=== PATIENT | male | born 1990 | race Caucasian/White ===

== ENCOUNTER 2018-06-22 04:49 | Emergency (ER) | payer BC, OTHER ==
--- NOTE | 2018-06-22 05:15 | PDOC ---
History of Present Illness - General Stated Complaint: FALL - HEADACHE Time Seen by Provider: 06/22/18 05:00 - History of Present Illness Initial Comments: 06/22/18 05:10 28 yo M with no significant pmh who p/w posterior headache s/p mechanical fall. Patient reports walking outside to his car this morning from at unknown time and falling backwards hitting his head. Now with diffuse dull posterior headache with asx. photophobia. Endorses LOC for unknown amount of time. Denies back or neck pain, teeth avulsion, or tongue laceration. Patient father arrived to pick patient up after accident. Patient has since been ambulatory. Denies AC use or analgesia. Patient denies vision change, neck stiffness, tinnitus, cough, leg pain/swelling , N/V, F,C, CP, SOB, urinary complaints, abdominal pain, diarrhea, constipation , hematuria, BPR, lightheadedness, weakness, sensory changes. PMHx: as noted above ROS: as noted Allergies: NKDA Past History - Past Medical History Allergies/Adverse Reactions: Allergies Allergy/AdvReac Type Severity Reaction Status Date / Time No Known Allergies Allergy Verified 06/22/18 05:26 Home Medications: Ambulatory Orders Amox-Tr/K Cl [Augmentin 500Mg Tablet] 1 tab PO TID #30 tablet 04/20/12 Escitalopram Oxalate [Lexapro] 10 mg PO DAILY 04/20/12 - Suicide/Smoking/Psychosocial Hx Smoking Status: Yes Smoking History: Current every day smoker Number of Cigarettes Smoked Daily: 10 Review of Systems - Review of Systems Comments:: 06/22/18 05:29 GENERAL/CONSTITUTIONAL: No fever or chills. No weakness. HEAD, EYES, EARS, NOSE AND THROAT: No change in vision. No ear pain or discharge. No sore throat. CARDIOVASCULAR: No chest pain or shortness of breath RESPIRATORY: No cough, wheezing, or hemoptysis. GASTROINTESTINAL: No nausea, vomiting, diarrhea or constipation. GENITOURINARY: No dysuria, frequency, or change in urination. MUSCULOSKELETAL: No joint or muscle swelling or pain. No neck or back pain. SKIN: No rash NEUROLOGIC: +headache. No vertigo, loss of consciousness, or change in strength/ sensation. ENDOCRINE: No increased thirst. No abnormal weight change HEMATOLOGIC/LYMPHATIC: No anemia, easy bleeding, or history of blood clots. ALLERGIC/IMMUNOLOGIC: No hives or skin allergy. *Physical Exam - Physical Exam Comments: 06/22/18 05:30 GENERAL: Awake, alert, and fully oriented, in no acute distress HEAD: + left posterior/occipital scalp ttp, with absent hematoma, or laceration. No signs of trauma, normocephalic, atraumatic EYES: PERRLA, EOMI, sclera anicteric, conjunctiva clear ENT: Neg periobital echymosis, or postauricular ecchymosis, auricles normal inspection, hearing grossly normal, nares patent, oropharynx clear without exudates. Moist mucosa NECK: Normal ROM, supple, no lymphadenopathy, JVD, or masses LUNGS: No distress, speaks full sentences, clear to auscultation bilaterally HEART: Regular rate and rhythm, normal S1 and S2, no murmurs, rubs or gallops, peripheral pulses normal and equal bilaterally. ABDOMEN: Soft, nontender, normoactive bowel sounds. No guarding, no rebound. No masses EXTREMITIES : Normal inspection, Normal range of motion, no edema. No clubbing or cyanosis. NEUROLOGICAL: Cranial nerves II through XII grossly intact. Normal speech, normal gait, no focal sensorimotor deficits. Neg dysmetria on FTN,or HTS. Nml BUBBA SKIN: Warm, Dry, normal turgor, no rashes or lesions noted Medical Decision Making - Medical Decision Making 06/22/18 05:11 28 yo M with no significant pmh who p/w posterior headache s/p mechanical fall. Vitals wnl, AF, A&Ox3, GCS 15. + left posterior/occipital scalp ttp, with absent hematoma, or laceration. Absent neuro deficits on physical exam. Absent evidence of increased ICP. No evidence of basilar skull fracture. C-SPINE neg per [facility]. R/o skull fracture, hematoma, ICH, TBI. Will provide analgesia and reassess. ED Course: CTH, Tylenol Patient ambulatory, headache improved. 06/22/18 06:15 CTH: No acute pathology Patient stable for d/c with return precautions. *DC/Admit/Observation/Transfer Diagnosis at time of Disposition: Closed head injury with brief loss of consciousness - Discharge Dispostion Condition at time of disposition: Stable Decision to Admit order: No - Referrals Referrals: Tej Epstein [Primary Care Provider] - - Patient Instructions Printed Discharge Instructions: DI for Headache Additional Instructions: Please return to the emergency department with any new or worsening symptoms or concerns. Please follow up with your primary care physician within 72 hours. Can take Tylenol (650 mg) as needed for pain every 6 hours. - Post Discharge Activity - Attestations Physician Attestion: 06/22/18 05:15 I attest to the information provided in this note.
[2018-06-22] MEDS ORDERED: ACETAMINOPHEN 325 MG TABLET (FP) PO ONE (05:24)
[2018-06-22 05:28] VITALS: TEMP 98.4; BMI 23.7
[2018-06-22] MEDS ORDERED: ACETAMINOPHEN 325 MG TABLET (FP) ONE (06:14)
--- NOTE | 2018-06-22 06:16 | PDOC ---
Attending Attestation - Resident Resident Name: Mundo Thorntonson - ED Attending Attestation I have performed the following: I have examined & evaluated the patient, The case was reviewed & discussed with the resident, I agree w/resident's findings & plan, Exceptions are as noted - HPI HPI: 06/22/18 06:28 28M no pmh here with headache after mechanical fall. Pt was walking towards his car when he slipped backwards on the slippery ground, hitting his head. Pt states that he was out for an unknown period of time, fall was unwitnessed. No injuries or px besides posterior headache. No n/v, numbness, weakness - Physicial Exam PE: 06/22/18 06:29 Agree with exam as documented by resident - Medical Decision Making 06/22/18 06:29 Head trauma 2/2 mechanical fall +LOC, concern for acute injury, hx/pe inconsistent with syncope, seizure analgesia f/u imaging No acute injury on dry CT Well appearing, safe for discharge
[2018-06-22 06:30] VITALS: BP 130/85; PULSE 92
== END 2018-06-22 06:27 | disposition home or self-care (01) ==
LOC: JER 04:49
DX: S09.90XA Unspecified injury of head, initial encounter (principal); R55 Syncope and collapse; W01.0XXA Fall on same level from slipping, tripping and stumbling without subsequent striking against object, initial encounter; Y93.89 Activity, other specified; Y92.89 Other specified places as the place of occurrence of the external cause
CPT/HCPCS: 70450-TC; 99282-25

== ENCOUNTER 2020-08-03 12:20 | Emergency (ER) | payer OTHER ==
[2020-08-03 12:57] VITALS: BP 114/76; PULSE 92; TEMP 98.4; BMI 25.1
[2020-08-03] MEDS ORDERED: METOCLOPRAMIDE HCL INJECTION 10 MG/2 ML VIAL IVPUSH ONE (13:23)
[2020-08-03] MEDS ORDERED: ACETAMINOPHEN 1000 MG/100 ML VIAL (NON FORMULARY) IVPB ONE (13:23)
[2020-08-03] MEDS ORDERED: METOCLOPRAMIDE HCL INJECTION 10 MG/2 ML VIAL ONE (13:50)
[2020-08-03] MEDS ORDERED: ACETAMINOPHEN INJECTION 100 ML IVPB ONE (13:50)
[2020-08-03 13:53] LABS: BASO % 0.8 % (0-2.0); EOS % 3.2 % (0-4.5); HEMATOCRIT 41.4 % (35.4-49); HEMOGLOBIN 14.1 GM/dL (11.7-16.9); LYMPH % 36.8 % (8-40); MCH 31.6 pg (25.7-33.7); MCHC 34.1 g/dl (32.0-35.9); MEAN CELL VOLUME 92.9 fl (80-96); MEAN PLT VOLUME 6.9 fl (7.5-11.1); MONO % 12.4 % (3.8-10.2); NEUT % 46.8 % (42.8-82.8); PLATELET COUNT 345 K/MM3 (134-434); RBC 4.45 M/mm3 (4.00-5.60); RDW 14.2 % (11.9-15.9); WHITE BLOOD COUNT 4.7 K/mm3 (4.0-10.0)
[2020-08-03 14:01] LABS: INR 1.06 (0.83-1.09); PROTHROMBIN TIME (PATIENT) 12.8 SEC (9.7-13.0)
[2020-08-03 14:04] LABS: ACTIVATED PTT 34.4 SECONDS (25.2-36.5)
[2020-08-03 14:27] LABS: CHLORIDE 107 mmol/L (98-107); POTASSIUM 4.3 mmol/L (3.5-5.1); SODIUM 142 mmol/L (136-145)
[2020-08-03 14:28] LABS: CALCIUM 8.7 mg/dL (8.5-10.1)
[2020-08-03 14:29] LABS: ALBUMIN 4.1 g/dl (3.4-5.0); ANION GAP 7 MMOL/L (8-16); BLOOD UREA NITROGEN 13.5 mg/dL (7-18); CO2 27 mmol/L (21-32); GLUCOSE,RANDOM 88 mg/dL (74-106); MAGNESIUM 2.3 mg/dL (1.8-2.4)
[2020-08-03 14:32] LABS: SGOT/AST 42 U/L (15-37); SGPT/ALT 57 U/L (13-61)
[2020-08-03 14:33] LABS: BILIRUBIN,TOTAL 0.4 mg/dL (0.2-1); TOT PROT 7.8 g/dl (6.4-8.2)
[2020-08-03 14:34] LABS: ALK PHOS 72 U/L (45-117)
== END 2020-08-03 15:10 | disposition home or self-care (01) ==
LOC: JER 12:20
PROC: 3E0333Z Introduction of Anti-inflammatory into Peripheral Vein, Percutaneous Approach (ICD-10-PCS; principal; 2020-08-03)
PROC: 3E033GC Introduction of Other Therapeutic Substance into Peripheral Vein, Percutaneous Approach (ICD-10-PCS; 2020-08-03)
DX: S09.90XA Unspecified injury of head, initial encounter (principal); S00.03XA Contusion of scalp, initial encounter
CPT/HCPCS: 36415; 70450-TC; 71045-TC-FY; 80053; 82550; 82553; 83735; 84484; 85025; 85610; 85730; 93005; 93010; 99285-25; J0131

== ENCOUNTER 2020-10-07 21:15 | Emergency (ER) | payer OTHER ==
[2020-10-07 21:33] VITALS: BP 133/85; PULSE 88; TEMP 98.5; BMI 25.1
[2020-10-07 22:09] LABS: PH,URINE 6.5 (5.0-8.0); URINE APPEARANCE CLEAR; URINE BILIRUBIN NEGATIVE (NEGATIVE); URINE COLOR YELLOW; URINE GLUCOSE (UA) NEGATIVE (NEGATIVE); URINE KETONE NEGATIVE (NEGATIVE); URINE LEUK ESTERASE NEGATIVE (NEGATIVE); URINE NITRITE NEGATIVE (NEGATIVE); URINE PROTEIN NEGATIVE (NEGATIVE); URINE UROBILINOGEN 0.2 mg/dL (0.2-1.0)
[2020-10-08] MEDS ORDERED: AZITHROMYCIN 500 MG TABLET PO ONE (00:28)
[2020-10-08] MEDS ORDERED: AZITHROMYCIN 250 MG TABLET ONE (00:44)
== END 2020-10-08 00:59 | disposition home or self-care (01) ==
LOC: JER 21:15
DX: N50.811 Right testicular pain (principal); N50.812 Left testicular pain; R30.0 Dysuria
CPT/HCPCS: 36415; 76870-TC; 81003; 87086; 87491; 87591; 99284-25

== ENCOUNTER 2022-05-26 11:00 | Emergency (ER) | payer OTHER ==
[2022-05-26] MEDS ORDERED: ONDANSETRON 4 MG/2 ML VIAL IVPUSH PRN (11:22)
[2022-05-26] MEDS ORDERED: ACETAMINOPHEN 1000 MG/100 ML BAG IVPB ONE (11:22)
[2022-05-26] MEDS ORDERED: SODIUM CHLORIDE 0.9% 500 ML INFUS.BAG IV ONE (11:22)
[2022-05-26 11:25] VITALS: BP 105/54; PULSE 75; RESP 20; TEMP 98.5; BMI 22.2
[2022-05-26] MEDS ORDERED: ONDANSETRON 4 MG/2 ML VIAL ONE (11:33)
[2022-05-26] MEDS ORDERED: ACETAMINOPHEN INJECTION 100 ML IVPB ONE (11:33)
[2022-05-26 12:19] LABS: HEMATOCRIT 34.1 % (35.4-49); HEMOGLOBIN 11.3 G/dL (11.7-16.9); MCH 28.4 pg (25.7-33.7); MCHC 33.2 g/dl (32.0-35.9); MEAN CELL VOLUME 85.6 fl (80-96); MEAN PLT VOLUME 6.2 fl (7.5-11.1); RBC 3.98 10^6/uL (4.00-5.60); RDW 13.9 % (11.9-15.9); WHITE BLOOD COUNT 9.1 10^3/uL (4.0-10.8)
[2022-05-26 12:29] LABS: ALBUMIN 3.1 g/dl (3.4-5.0); BILIRUBIN,TOTAL 0.3 mg/dl (0.2-1); CALCIUM 8.8 mg/dl (8.5-10); TOT PROT 6.7 g/dl (6.4-8.2)
== END 2022-05-26 14:16 | disposition home or self-care (01) ==
LOC: FER 11:00
PROC: 3E033GC Introduction of Other Therapeutic Substance into Peripheral Vein, Percutaneous Approach (ICD-10-PCS; principal; 2022-05-26)
DX: R10.84 Generalized abdominal pain (principal)
CPT/HCPCS: 36415; 74177-TC; 80053; 82272; 85027; 99285-25; Q9967

== ENCOUNTER 2022-08-03 10:35 | Day surgery (SDC) | payer OTHER ==
[2022-07-27 15:44] VITALS: BMI 23.6
[2022-08-03 12:18] VITALS: TEMP 97.8
[2022-08-03 12:22] VITALS: BP 118/68; PULSE 80; RESP 20
== END 2022-08-03 12:35 | disposition home or self-care (01) ==
LOC: FASU-ENDO 10:35
PROVIDERS: ATTEND Internal Medicine Gastroenterology
PROC: 0DBL8ZX Excision of Transverse Colon, Via Natural or Artificial Opening Endoscopic, Diagnostic (ICD-10-PCS; 2022-08-03)
PROC: 0DBM8ZX Excision of Descending Colon, Via Natural or Artificial Opening Endoscopic, Diagnostic (ICD-10-PCS; 2022-08-03)
PROC: 0DBK8ZX Excision of Ascending Colon, Via Natural or Artificial Opening Endoscopic, Diagnostic (ICD-10-PCS; principal; 2022-08-03 11:50)
DX: K92.1 Melena (principal); R19.7 Diarrhea, unspecified; K64.1 Second degree hemorrhoids; K62.6 Ulcer of anus and rectum; K52.89 Other specified noninfective gastroenteritis and colitis
CPT/HCPCS: 88305-TC

== ENCOUNTER 2022-09-26 03:44 | Emergency (ER) | payer OTHER ==
[2022-09-26 03:47] VITALS: BP 140/79; PULSE 100; RESP 18; TEMP 97.6; BMI 25.8
[2022-09-26] MEDS ORDERED: LACTATED RINGERS SOLUTION 1000 ML INFUS.BAG IV ONE (04:01)
[2022-09-26 04:39] LABS: BASO % 0.4 % (0-2.0); EOS % 2.2 % (0-4.5); HEMATOCRIT 39.8 % (35.4-49); HEMOGLOBIN 13.4 GM/dL (11.7-16.9); LYMPH % 42.5 % (8-40); MCH 28.7 pg (25.7-33.7); MCHC 33.8 g/dl (32.0-35.9); MEAN PLT VOLUME 6.5 fl (7.5-11.1); MONO % 6.1 % (3.8-10.2); NEUT % 48.8 % (42.8-82.8); PLATELET COUNT 339 10^3/uL (134-434); RBC 4.68 M/mm3 (4.00-5.60); RDW 14.7 % (11.9-15.9); WHITE BLOOD COUNT 6.8 K/mm3 (4.0-10.0)
[2022-09-26 04:58] LABS: CALCIUM 9.5 mg/dL (8.5-10.1)
[2022-09-26 04:59] LABS: ALBUMIN 4.3 g/dl (3.4-5.0); BLOOD UREA NITROGEN 16.6 mg/dL (7-18)
[2022-09-26 05:03] LABS: TOT PROT 8.7 g/dl (6.4-8.2)
[2022-09-26 05:04] LABS: BILIRUBIN,TOTAL 0.2 mg/dL (0.2-1)
== END 2022-09-26 06:14 | disposition home or self-care (01) ==
LOC: JER 03:44
DX: F10.920 Alcohol use, unspecified with intoxication, uncomplicated (principal); R55 Syncope and collapse; R00.2 Palpitations; Y90.0 Blood alcohol level of less than 20 mg/100 ml
CPT/HCPCS: 36415; 70450-TC; 72125-TC; 80053; 80307; 85025; 93005; 93010; 99285-25

== ENCOUNTER 2023-03-29 10:25 | Day surgery (SDC) | payer OTHER ==
[2023-03-28 12:48] VITALS: BMI 25.1
[2023-03-29 10:44] VITALS: TEMP 97.9
[2023-03-29 12:41] VITALS: BP 120/84; RESP 19
[2023-03-29 13:00] VITALS: PULSE 83
== END 2023-03-29 13:00 | disposition home or self-care (01) ==
LOC: FASU-ENDO 10:25
PROVIDERS: ATTEND Internal Medicine Gastroenterology
PROC: 0DB78ZX Excision of Stomach, Pylorus, Via Natural or Artificial Opening Endoscopic, Diagnostic (ICD-10-PCS; 2023-03-29)
PROC: 0DB48ZX Excision of Esophagogastric Junction, Via Natural or Artificial Opening Endoscopic, Diagnostic (ICD-10-PCS; 2023-03-29)
PROC: 0DB98ZX Excision of Duodenum, Via Natural or Artificial Opening Endoscopic, Diagnostic (ICD-10-PCS; principal; 2023-03-29 12:02)
DX: K31.7 Polyp of stomach and duodenum (principal); K29.80 Duodenitis without bleeding; K29.50 Unspecified chronic gastritis without bleeding; K44.9 Diaphragmatic hernia without obstruction or gangrene; K22.89 Other specified disease of esophagus

== ENCOUNTER 2023-08-10 16:13 | Emergency (ER) | payer OTHER ==
[2023-08-10 16:43] VITALS: BP 128/81; PULSE 82; RESP 18; TEMP 97.4; BMI 25.1
[2023-08-10] MEDS ORDERED: ACETAMINOPHEN 500 MG TABLET (FP) ONE (17:33)
[2023-08-10] MEDS: ACETAMINOPHEN 500 MG TABLET (FP) PO ONE (17:35)
== END 2023-08-10 21:02 | disposition left against medical advice (07) ==
LOC: JER 16:13
DX: S09.90XA Unspecified injury of head, initial encounter (principal); S29.9XXA Unspecified injury of thorax, initial encounter; W01.198A Fall on same level from slipping, tripping and stumbling with subsequent striking against other object, initial encounter; Y92.002 Bathroom of unspecified non-institutional (private) residence as the place of occurrence of the external cause
CPT/HCPCS: 70450-TC; 71046-TC-FY; 93005; 93010; 99285-25

== ENCOUNTER 2024-02-05 17:29 | Emergency (ER) | payer OTHER ==
[2024-02-05 17:36] VITALS: BP 120/76; PULSE 81; RESP 20; TEMP 98.4; BMI 24.4
[2024-02-05 18:47] LABS: HEMATOCRIT 36.8 % (35.4-49); HEMOGLOBIN 12.6 GM/dL (11.7-16.9); MCH 31.3 pg (25.7-33.7); MCHC 34.3 g/dl (32.0-35.9); MEAN CELL VOLUME 91.3 fl (80-96); MEAN PLT VOLUME 6.2 fl (7.5-11.1); PLATELET COUNT 310 10^3/uL (134-434); RBC 4.03 M/mm3 (4.00-5.60); RDW 13.5 % (11.9-15.9); WHITE BLOOD COUNT 3.9 K/mm3 (4.0-10.0)
[2024-02-05 19:11] LABS: ANISOCYTOSIS 1+; MACROCYTOSIS 1+
[2024-02-05 20:05] LABS: HIV INTERPRETATION NEGATIVE (NEGATIVE)
== END 2024-02-05 19:09 | disposition home or self-care (01) ==
LOC: JER 17:29
DX: R19.5 Other fecal abnormalities (principal)
CPT/HCPCS: 36415; 85025; 86803; 87389; 87522; 99283-25